=== PATIENT | male | born 1955 | race Hispanic/Latino ===

== ENCOUNTER → 2021-02-05 | Outpatient (CLI) | payer BC | LOC: US 07:00 | PROVIDERS: ATTEND Internal Medicine Gastroenterology | DX: K74.60 Unspecified cirrhosis of liver (principal) | CPT/HCPCS: 76705 ==

== ENCOUNTER → 2021-12-31 | Outpatient (CLI) | payer BC ==
[2021-12-31 12:09] LABS: HEMOGLOBIN 12.6 g/dL (14.0-18.0)
[2021-12-31 12:35] LABS: INR 1.13; PROTHROMBIN TIME 15.5 seconds (11.9-14.5)
[2021-12-31 12:36] LABS: PARTIAL THROMBOPLASTIN TIME 32.9 seconds (23.8-35.5)
== END ==
LOC: US 10:22
PROVIDERS: ATTEND Internal Medicine Gastroenterology
DX: K74.60 Unspecified cirrhosis of liver (principal)
CPT/HCPCS: 36415; 49083; 85014; 85049; 85610; 85730; C1729

== ENCOUNTER → 2022-02-03 | Outpatient (CLI) | payer BC ==
[~2022-02-03] MED LIST: ALBUMIN 25% 12.5GM 50ML 200 ML IV ONE
== END ==
LOC: US 13:26
PROVIDERS: ATTEND Internal Medicine Gastroenterology
DX: R18.8 Other ascites (principal)
CPT/HCPCS: 49083; C1729

== ENCOUNTER → 2022-02-18 | Outpatient (CLI) | payer BC | LOC: US 08:57 | PROVIDERS: ATTEND Internal Medicine Gastroenterology | DX: R18.8 Other ascites (principal); K74.60 Unspecified cirrhosis of liver | CPT/HCPCS: 49083 ==

== ENCOUNTER → 2022-03-16 | Outpatient (CLI) | payer BC | LOC: US 08:01 | PROVIDERS: ATTEND Internal Medicine Gastroenterology | DX: R18.8 Other ascites (principal); K74.60 Unspecified cirrhosis of liver | CPT/HCPCS: 49083 ==

== ENCOUNTER → 2022-04-08 | Outpatient (CLI) | payer BC ==
[~2022-04-08] MED LIST changes: +ALBUMIN 25% 12.5GM 50ML 100 ML IV ONE
== END ==
LOC: US 09:57
PROVIDERS: ATTEND Internal Medicine Gastroenterology
DX: R18.8 Other ascites (principal); K74.60 Unspecified cirrhosis of liver
CPT/HCPCS: 49083; C1729

== ENCOUNTER → 2022-04-21 | Outpatient (CLI) | payer BC | LOC: US 08:48 | PROVIDERS: ATTEND Internal Medicine Gastroenterology | DX: R18.8 Other ascites (principal); K74.60 Unspecified cirrhosis of liver | CPT/HCPCS: 49083; C1729 ==

== ENCOUNTER → 2022-05-13 | Outpatient (CLI) | payer BC ==
[~2022-05-13] MED LIST changes: -ALBUMIN 25% 12.5GM 50ML 100 ML IV ONE
[2022-05-13 12:57] LABS: HEMOGLOBIN 14.7 g/dL (14.0-18.0)
[2022-05-13 13:12] LABS: INR 1.37
[2022-05-13 13:24] LABS: CREATININE, SERUM 2.51 mg/dL (0.72-1.25)
== END ==
LOC: US 12:14
PROVIDERS: ATTEND Internal Medicine Gastroenterology
DX: R18.8 Other ascites (principal); K74.60 Unspecified cirrhosis of liver
CPT/HCPCS: 36415; 49083; 82565; 84520; 85014; 85049; 85610; 85730; C1729